=== PATIENT | male | born 1945 | race Asian ===

== ENCOUNTER 2016-09-11 14:42 | Emergency (ER) | payer MEDICARE, MEDICAID ==
[2016-09-11 14:55] VITALS: BP 162/69
--- NOTE | 2016-09-11 15:29 | UC ---
Skin Complaint HPI - HPI Summary HPI Summary: Patient present with complaints of one year onset rash that started on his lower leg, and spead to his arms, back and abdomen. He states it itchy all the time. He states he applies topical agents with no relief. He denies any food, or drug allergies. He reports no new medications. He has had no recent travel, or ill contacts. Recently the rash has gotten worse and has spread to both his forearms. - History of Current Complaint Chief Complaint: UCSkin Time Seen by Provider: 09/11/16 15:02 Stated Complaint: RASHES ALL OVER Hx Obtained From: Patient Onset/Duration: Gradual Onset Onset Severity: Mild Current Severity: Moderate Pain Intensity: 0 Pain Scale Used: 0-10 Numeric Location: Diffuse Character: Pruritus, Redness, Raised Aggravating: Touch Alleviating: OTC Meds - Allergy/Home Medications Allergies/Adverse Reactions: Allergies Allergy/AdvReac Type Severity Reaction Status Date / Time No Known Allergies Allergy Verified 09/11/16 14:56 Home Medications: Home Medications Allopurinol TAB* [Zyloprim 300 MG TAB*] 09/11/16 [History] Amlodipine Besylate [Norvasc 5 mg tab] 09/11/16 [History] Atenolol TAB* [Tenormin TAB* 25 MG] 09/11/16 [History] Cholecalciferol [Vitamin D3] 09/11/16 [History] Coenzyme Q10 (Ubidecarenone) [Coq10] 09/11/16 [History Confirmed 09/11/16] Cyanocobalamin [B12] 09/11/16 [History Confirmed 09/11/16] Levothyroxine TAB* [Synthroid 100 MCG TAB*] 09/11/16 [History] Metformin HCl [Fortamet] 09/11/16 [History] Potassium Chlor TAB* [Klor Con ER TAB 10 MEQ*] 09/11/16 [History] Valsartan-Hydrochlorothiazide [Valsartan/Hydrochlorothia 320-12.5 mg] 09/11/16 [History] Review of Systems Skin: Rash All Other Systems Reviewed And Are Negative: Yes PMH/Surg Hx/FS Hx/Imm Hx - Surgical History Surgical History: None - Social History Alcohol Use: Occasionally Substance Use Type: None Smoking Status (MU): Former Smoker Length of Time of Smoking/Using Tobacco: quit 10 days ago Physical Exam Triage Information Reviewed: Yes Appearance: Well-Appearing Vital Signs: Initial Vital Signs Temp 97.5 F 09/11/16 14:51 Pulse 65 09/11/16 14:51 Resp 12 09/11/16 14:51 BP 162/69 09/11/16 14:51 Pulse Ox 99 09/11/16 14:51 Vital Signs Reviewed: Yes Eye Exam: Normal ENT Exam: Normal Neck exam: Normal Respiratory Exam: Normal Cardiovascular Exam: Normal Abdominal Exam: Normal Skin Exam: Other - diffuse macular papular rash on lower legs which appear chronic with dry scabbed over areas, irregular shaped, and various sizes. back cluster of circular raised papules, arms linear inflammed circular open areas, epithelial tissue removed. no induration or flucuacne. Course/Dx - Course Course Of Treatment: Patient presents with acute on chronic rash of lower legs, truck, and arms onset one year. There are no vesicles, the pattern is not dermatomal, I dont feel this is scabies. The diagnoses will require dermatology consult, and perhaps biopsy. I have reffered his to dermatolgy. In the meantime I do not feel that a short course of steriods will be harmful, and may make his more comfortable. I also recommend he apply topical steroid cream to the affected areas twice daily. He has also been referred to PCP as this may need to be evaluated to rule out autoimmune, allergic, or infectious causes. At the time of discharge he had a nontoxic appearance, normal vital signs and was afebrile. - Differential Diagnoses - Skin Complaint Differential Diagnoses: Other - Dermatitis - Diagnoses Provider Diagnoses: Dermatitis Discharge - Discharge Plan Condition: Stable Disposition: HOME Prescriptions: Fluticasone Propionate [Cutivate] 0.05 % EX BID #1 tube predniSONE TAB* [Deltasone TAB*] 50 mg PO DAILY #5 tab Patient Education Materials: Dermatitis (ED) Referrals: [facility] [Outside] Bri Guerra [Medical Doctor] -
== END 2016-09-11 15:19 | disposition home or self-care (01) ==
LOC: UCEAST 14:42
DX: L30.9 Dermatitis, unspecified (principal); F17.210 Nicotine dependence, cigarettes, uncomplicated
CPT/HCPCS: 99202; G0463

== ENCOUNTER 2018-04-26 10:56 | Emergency (ER) | payer MEDICARE, MEDICAID ==
[2018-04-26 11:03] VITALS: BP 134/65
--- NOTE | 2018-04-26 11:24 | ED ---
Throat Pain/Nasal Congestion - HPI Summary HPI Summary: 73 yo male presents with left ear pain with mild decreased hearing on left ear that started with a sinus infection 2 weeks ago, denies f/c - History of Current Complaint Chief Complaint: UCEar Time Seen by Provider: 04/26/18 11:07 Hx Obtained From: Patient Onset/Duration: Sudden Onset Severity: Moderate Associated Signs And Symptoms: Positive: Negative - Allergies/Home Medications Allergies/Adverse Reactions: Allergies Allergy/AdvReac Type Severity Reaction Status Date / Time No Known Allergies Allergy Verified 04/26/18 11:03 PMH/Surg Hx/FS Hx/Imm Hx Previously Healthy: Yes Endocrine/Hematology History: Reports: Hx Diabetes, Hx Thyroid Disease Cardiovascular History: Reports: Hx Hypertension Infectious Disease History: No Infectious Disease History: Denies: Traveled Outside the [place] in Last 30 Days - Social History Alcohol Use: Occasionally Substance Use Type: Reports: None Smoking Status (MU): Former Smoker Length of Time of Smoking/Using Tobacco: quit 10 days ago Review of Systems - ROS Summary Review of Systems Summary: Constitutional: Negative Skin: Negative Eyes: Negative ENT: left ear pain Cardiovascular: Negative Respiratory: Negative Gastrointestinal: Negative Genitourinary: Negative Musculoskeletal: Negative Neurological: Negative Psychological: Normal All Other Systems Reviewed And Are Negative: Yes All Other Systems Reviewed And Are Negative: Yes Physical Exam - Summary Physical Exam Summary: Triage Information Reviewed: Yes Appearance: No Pain Distress Eye Exam: Normal ENT Exam: left TM eyrthema w/o effusion, NEG posterior auricular LN tenderness Neck: Supple Respiratory: Lungs clear, Normal breath sounds Cardiovascular: Positive: RRR, S1, S2 Abdominal Exam: Normal Musculoskeletal Exam: Normal Neurological Exam: Normal Psychological Exam: Normal Skin Exam: Normal Vital Signs On Initial Exam: Initial Vitals Temp Pulse Resp BP Pulse Ox 36.6 C 69 17 134/65 100 04/26/18 10:59 04/26/18 10:59 04/26/18 10:59 04/26/18 10:59 04/26/18 10:59 Diagnostics - Vital Signs Vital Signs Temp Pulse Resp BP Pulse Ox 04/26/18 10:59 36.6 C 69 17 134/65 100 - Laboratory Lab Statement: Any lab studies that have been ordered have been reviewed, and results considered in the medical decision making process. EENT Course/Dx - Diagnoses Provider Diagnoses: LOM (left otitis media) Discharge - Sign-Out/Discharge Documenting (check all that apply): Patient Departure All imaging exams completed and their final reports reviewed: Yes - Discharge Plan Condition: Stable Disposition: HOME Prescriptions: Amoxicillin/Clavulanate TAB* [Augmentin TAB 875*] 875 mg PO BID 7 Days #14 tab Patient Education Materials: Ear Infection (ED) Referrals: Nancy Bryant MD [Primary Care Provider] - - Billing Disposition and Condition Condition: STABLE Disposition: Home
== END 2018-04-26 11:38 | disposition home or self-care (01) ==
LOC: UCEAST 10:56
DX: H66.92 Otitis media, unspecified, left ear (principal); E11.9 Type 2 diabetes mellitus without complications; I10 Essential (primary) hypertension; Z87.891 Personal history of nicotine dependence
CPT/HCPCS: 99212; G0463